=== PATIENT | female | born 1980 | race Caucasian/White ===

== ENCOUNTER 2019-12-03 21:45 | Emergency (ER) | payer OTHER ==
[2019-12-03] MEDS ORDERED: ADACEL/BOOSTRIX VACCINE (DIPHTH/PERTUSS/ACELL/TETANUS)0.5ML SYR (90715) IM ONE (22:45)
[2019-12-03 23:02] LABS: BASO % 0.5 % (0.0-1.0); EOS # 0.3 10^3/uL (0.0-0.5); EOS % 3.9 % (0.0-3.0); HEMATOCRIT 40.4 % (36.0-47.0); HEMOGLOBIN 13.5 g/dl (12.0-15.5); LYMPH # 3.9 10^3/uL (1.5-5.0); LYMPH % 45.3 % (24.0-44.0); MEAN CORPUSCULAR HEMOGLOBIN 29.3 pg (27.0-33.0); MEAN CORPUSCULAR HGB CONC 33.4 g/dl (32.0-36.5); MEAN CORPUSCULAR VOLUME 87.8 fl (80.0-96.0); MONO # 0.5 10^3/uL (0.0-0.8); MONO % 5.9 % (0.0-5.0); NEUTROPHILS # 3.8 10^3/uL (1.5-8.5); NEUTROPHILS % 44.1 % (36.0-66.0); PLATELET COUNT, AUTOMATED 302 10^3/uL (150-450); WHITE BLOOD COUNT 8.7 10^3/uL (4.0-10.0)
[2019-12-03 23:33] LABS: ALBUMIN 4.1 GM/DL (3.2-5.2); ALT/SGPT 135 U/L (12-78); BILIRUBIN,TOTAL 0.6 MG/DL (0.2-1.0); BLOOD UREA NITROGEN 10 MG/DL (7-18); CALCIUM LEVEL 9.1 MG/DL (8.5-10.1); CARBON DIOXIDE LEVEL 28 MEQ/L (21-32); CHLORIDE LEVEL 104 MEQ/L (98-107); CREATININE FOR GFR 0.82 MG/DL (0.55-1.30); GLOMERULAR FILTRATION RATE > 60.0 (>60); GLUCOSE, FASTING 106 MG/DL (70-100); POTASSIUM SERUM 3.9 MEQ/L (3.5-5.1); SODIUM LEVEL 140 MEQ/L (136-145); TOTAL PROTEIN 7.8 GM/DL (6.4-8.2)
[2019-12-04 00:07] VITALS: BP 120/80
[2019-12-05 09:33] LABS: HEPATITIS B SURFACE ANTIBODY POSITIVE (POSITIVE)
[2019-12-05 09:43] LABS: HEPATITIS B SURFACE ANTIGEN NEGATIVE (NEGATIVE)
[2019-12-05 10:12] LABS: HEPATITIS C VIRUS ABY INDEX < 0.0 INDEX (<0.8); HIV 1&2 SCREEN CENTAUR NEGATIVE (NEGATIVE)
== END 2019-12-04 00:08 | disposition home or self-care (01) ==
LOC: M ED 21:45
DX: S61.233A Puncture wound without foreign body of left middle finger without damage to nail, initial encounter (principal); W46.0XXA Contact with hypodermic needle, initial encounter; Y92.89 Other specified places as the place of occurrence of the external cause; Y99.0 Civilian activity done for income or pay

== ENCOUNTER → 2020-01-01 | Outpatient (REF) | payer OTHER ==
[2020-01-01 13:46] LABS: ALBUMIN 3.8 GM/DL (3.2-5.2); ALT/SGPT 52 U/L (12-78); BILIRUBIN,DIRECT 0.2 MG/DL (0.0-0.2); BILIRUBIN,TOTAL 0.7 MG/DL (0.2-1.0); TOTAL PROTEIN 7.2 GM/DL (6.4-8.2)
[2020-01-02 08:39] LABS: HIV 1&2 SCREEN CENTAUR NEGATIVE (NEGATIVE)
[2020-01-05 14:06] LABS: HEPATITIS C QUANTITATION HCV Not Detected IU/mL (.)
== END ==
LOC: M SFHCPLAZ 09:35
PROVIDERS: ATTEND Internal Medicine Infectious Disease
DX: Z20.5 Contact with and (suspected) exposure to viral hepatitis (principal); W46.1XXA Contact with contaminated hypodermic needle, initial encounter

== ENCOUNTER → 2020-03-04 | Outpatient (REF) | payer OTHER ==
[2020-03-04 13:21] LABS: ALBUMIN 3.8 GM/DL (3.2-5.2); ALT/SGPT 36 U/L (12-78); BILIRUBIN,DIRECT 0.2 MG/DL (0.0-0.2); BILIRUBIN,TOTAL 0.6 MG/DL (0.2-1.0)
[2020-03-05 11:26] LABS: HIV 1&2 SCREEN CENTAUR NEGATIVE (NEGATIVE)
[2020-03-08 08:08] LABS: HEPATITIS C QUANTITATION HCV Not Detected IU/mL (.)
== END ==
LOC: M SFHCPLAZ 09:09
PROVIDERS: ATTEND Internal Medicine Infectious Disease
DX: Z20.5 Contact with and (suspected) exposure to viral hepatitis (principal)

== ENCOUNTER 2020-11-17 19:41 | Emergency (ER) | payer OTHER ==
[~2020-11-17] VITALS: Ht 170.2 cm; Wt 80.5 kg
[2020-11-17] MEDS ORDERED: PRENTAB9 PO (19:48)
[2020-11-17 20:51] LABS: BASO % 0.4 % (0.0-1.0); EOS # 0.3 10^3/uL (0.0-0.5); EOS % 3.6 % (0.0-3.0); HEMOGLOBIN 12.9 g/dl (12.0-15.5); LYMPH # 2.5 10^3/uL (1.5-5.0); LYMPH % 33.8 % (24.0-44.0); MEAN CORPUSCULAR HEMOGLOBIN 29.8 pg (27.0-33.0); MEAN CORPUSCULAR HGB CONC 33.9 g/dl (32.0-36.5); MEAN CORPUSCULAR VOLUME 87.8 fl (80.0-96.0); MONO # 0.5 10^3/uL (0.0-0.8); MONO % 6.3 % (0.0-5.0); NEUTROPHILS % 55.5 % (36.0-66.0); PLATELET COUNT, AUTOMATED 248 10^3/uL (150-450); RED BLOOD COUNT 4.33 10^6/uL (4.00-5.40); WHITE BLOOD COUNT 7.3 10^3/uL (4.0-10.0)
--- NOTE | 2020-11-17 22:36 | REPVR ---
PROCEDURE INFORMATION: Exam: US First Trimester, Transabdominal Exam date and time: 11/17/2020 9:50 PM Age: 39 years old Clinical indication: Lmp or gestational age (in weeks): 7; Antepartum complications; Bleeding; ; Additional info: Vag bleeding; Low back pain TECHNIQUE: Imaging protocol: Real-time transabdominal obstetrical ultrasound of the maternal pelvis and a first trimester , less than 14 weeks 0 days, with image documentation. COMPARISON: No relevant prior studies available. FINDINGS: Gestation: An intrauterine gestational sac can be identified both sagittal and transverse. A yolk sac is identified. This is very early in gestation and all parameters cannot be assessed, therefore a complete survey should be done at 18-20 weeks gestation. Embryonic/ heart rate: There is cardiac motion estimated 139 bpm. Placenta: At the right side of the gestational sac there is a 1.5 cm in length by 6 mm in thickness small area of subchorionic hemorrhage or implantation bleed. [place]-Rump length: pole is consistent with 7 weeks 0 days utilizing the crown-rump length. Uterus: The uterus measures 8.7 cm in length by 4.5 cm in AP dimension. Cervix: Unremarkable. No adnexal mass is identified. Intraperitoneal space: There is no evidence of free fluid in the pelvis. Other findings: There is good decidual reaction. IMPRESSION: 1. Intrauterine gestational sac with a pole estimated at 7 weeks 0 days. Cardiac activity 139 bpm. 1.5 cm by 6 mm area of subchorionic bleed or implantation bleed. 2. A complete survey should be performed at 18-20 weeks gestation. Electronically signed by: Devendra Orellana On 11/17/2020 22:35:33 PM
[2020-11-17 22:59] VITALS: BP 123/73
== END 2020-11-17 23:01 | disposition home or self-care (01) ==
LOC: M ED 19:41
DX: O20.9 Hemorrhage in early pregnancy, unspecified (principal); Z3A.01 Less than 8 weeks gestation of pregnancy; Z87.891 Personal history of nicotine dependence

== ENCOUNTER 2020-12-02 20:21 | Emergency (ER) | payer OTHER ==
[~2020-12-02] VITALS: Ht 170.2 cm; Wt 78.2 kg
[~2020-12-02 20:21] MED LIST: PRENTAB9 PO
[2020-12-02 21:27] LABS: BASO % 0.3 % (0.0-1.0); EOS # 0.5 10^3/uL (0.0-0.5); EOS % 5.4 % (0.0-3.0); HEMATOCRIT 39.9 % (36.0-47.0); HEMOGLOBIN 13.9 g/dl (12.0-15.5); LYMPH # 2.9 10^3/uL (1.5-5.0); LYMPH % 32.5 % (24.0-44.0); MEAN CORPUSCULAR HEMOGLOBIN 30.5 pg (27.0-33.0); MEAN CORPUSCULAR HGB CONC 34.8 g/dl (32.0-36.5); MEAN CORPUSCULAR VOLUME 87.7 fl (80.0-96.0); MONO # 0.7 10^3/uL (0.0-0.8); MONO % 8.1 % (0.0-5.0); NEUTROPHILS # 4.7 10^3/uL (1.5-8.5); NEUTROPHILS % 53.4 % (36.0-66.0); PLATELET COUNT, AUTOMATED 276 10^3/uL (150-450); RED BLOOD COUNT 4.55 10^6/uL (4.00-5.40); WHITE BLOOD COUNT 8.8 10^3/uL (4.0-10.0)
[2020-12-02 21:32] LABS: APPEARANCE, URINE CLOUDY (CLEAR); BACTERIA, URINE AUTO 2+ (NEGATIVE); BILIRUBIN, URINE AUTO NEGATIVE (NEGATIVE); BLOOD, URINE BLOOD 2+ (NEGATIVE); COLOR, URINE YELLOW (YELLOW); GLUCOSE, URINE (UA) AUTO NEGATIVE (NEGATIVE); KETONE, URINE AUTO NEGATIVE (NEGATIVE); LEUKOCYTE ESTERASE, URINE AUTO 1+ (NEGATIVE); MUCUS, URINE SMALL (NEGATIVE); NITRITE, URINE AUTO NEGATIVE (NEGATIVE); PROTEIN, URINE AUTO NEGATIVE (NEGATIVE); RBC, URINE AUTO 4 /HPF (0-3); SPECIFIC GRAVITY URINE AUTO 1.019 (1.002-1.035); SQUAMOUS EPITHELIAL CELL UR AU 1 /HPF (0-6); UROBILINOGEN, URINE AUTO 0.2 mg/dL (0.0-2.0); WBC, URINE AUTO 14 /HPF (0-3)
[2020-12-02 22:11] LABS: BLOOD UREA NITROGEN 9 MG/DL (7-18); CALCIUM LEVEL 8.4 MG/DL (8.5-10.1); CARBON DIOXIDE LEVEL 25 MEQ/L (21-32); CHLORIDE LEVEL 104 MEQ/L (98-107); CREATININE FOR GFR 0.65 MG/DL (0.55-1.30); GLOMERULAR FILTRATION RATE > 60.0 (>60); GLUCOSE, FASTING 83 MG/DL (70-100); HCG, SERUM QUANTITATIVE 103005 MIU/ML; POTASSIUM SERUM 3.7 MEQ/L (3.5-5.1); SODIUM LEVEL 139 MEQ/L (136-145)
--- NOTE | 2020-12-02 22:28 | REPVR ---
PROCEDURE INFORMATION: Exam: US First Trimester, Transabdominal Exam date and time: 12/02/20 (9:25pm) Age: 39 years old Clinical indication: female. Vaginal bleeding. Gestational age: 9 weeks 3 days. TECHNIQUE: Imaging protocol: Real-time transabdominal obstetrical ultrasound of the maternal pelvis and a first trimester , less than 14 weeks 0 days, with image documentation. COMPARISON: No relevant prior studies available FINDINGS: The LMP is reported to be: 09/27/20 An early live intrauterine gestation is identified, approx. 9 weeks 4 days gestational age, based on the crown-rump length (CRL = 26.8 mm). Based on the CRL measurement, the MARCELLUS = 07/03/21. Close correlation with the menstrual history is noted. heart rate is recorded at 179 bpm. A yolk sac is visualized. No adnexal pathology. No free pelvic fluid is appreciated. No solid adnexal mass. IMPRESSION: A single live IUP is seen, at 9 weeks 4 days gestational age (based on the CRL). heartbeat is recorded. No adnexal pathology is seen. No free pelvic fluid is noted. Electronically signed by: Amna Marino On 12/02/2020 22:28:52 PM
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
[2020-12-02] MEDS ORDERED: CEPH500C PO ×2 (22:54→22:59)
[2020-12-02 22:57] VITALS: BP 130/80
[2020-12-02] MEDS ORDERED: CEPHALEXIN 500 MG CAP PO ONE (23:00)
== END 2020-12-02 23:10 | disposition home or self-care (01) ==
LOC: M ED 20:21
DX: O20.0 Threatened abortion (principal); O23.41 Unspecified infection of urinary tract in pregnancy, first trimester; Z87.891 Personal history of nicotine dependence; Z3A.09 9 weeks gestation of pregnancy